=== PATIENT | male | born 1985 | race African-American/Black ===

== ENCOUNTER 2018-09-30 02:30 | Emergency (ER) | payer OTHER ==
[~2018-09-30] VITALS: Ht 177.8 cm; Wt 79.4 kg
[2018-09-30 02:37] VITALS: BP 120/79
--- NOTE | 2018-09-30 02:45 | NUR ---
PT CAME TO EMERGENCY DEPT. BECAUSE HE WOKE UP ON THE GROUND 2 HRS AGO, HE FEELS LIKE HE HAD A SEIZURE. PT HAS A HX OF SEIZURES. PT AXO4. RESPIRATIONS EVEN AND UNLABORED. PT PUT ON THE MONITOR AND PULSE OX. PENDING EVAL FROM ER .
--- NOTE | 2018-09-30 02:52 | NUR ---
BRAYAN ALFRED AT BEDSIDE.
--- NOTE | 2018-09-30 02:57 | NUR ---
LAG SCREWER AT BEDSIDE FOR BLOOD DRAW.
[2018-09-30 03:24] LABS: BASOPHILS # (AUTO) 0.1 /CMM (0.0-0.2); BASOPHILS % (AUTO) 0.8 % (0.0-2.0); EOSINOPHILS % (AUTO) 1.5 % (0.0-6.0); HEMATOCRIT 43 % (39-51); HEMOGLOBIN 14.7 g/dL (13.5-17.5); LYMPHOCYTES # (AUTO) 1.2 /CMM (0.8-4.8); LYMPHOCYTES % (AUTO) 13.9 % (20.0-44.0); MEAN CORPUSCULAR HGB CONC 34 g/dl (31.0-36.0); MEAN CORPUSCULAR VOLUME 91 fL (80-96); MONOCYTES # (AUTO) 0.8 /CMM (0.1-1.30); MONOCYTES % (AUTO) 8.8 % (2.0-12.0); NEUTROPHILS # (AUTO) 6.5 /CMM (1.8-8.9); PLATELET COUNT (AUTO) 479 /CMM (150-450); RED BLOOD CELL COUNT(AUTO) 4.72 MIL/uL (4.5-6.0); WHITE BLOOD COUNT (AUTO) 8.6 K/uL (4.3-11.0)
[2018-09-30 03:36] LABS: CALCIUM, SERUM 9.4 mg/dL (8.5-10.1); POTASSIUM 3.9 mmol/L (3.5-5.1)
[2018-09-30] MEDS ORDERED: LEVETIRACETAM (250 MG) 250 MG TABLET PO ONE ×2 (05:00)
--- NOTE | 2018-09-30 05:30 | NUR ---
Patient discharged to home in stable condition. Written and verbal after care instructions given. Patient verbalizes understanding of instruction.
== END 2018-09-30 05:32 | disposition home or self-care (01) ==
LOC: ER 02:45
DX: R56.9 Unspecified convulsions (principal); E86.0 Dehydration; F25.9 Schizoaffective disorder, unspecified; F32.9 Major depressive disorder, single episode, unspecified
CPT/HCPCS: 36415; 80048; 85025; 99283; A4606

== ENCOUNTER 2018-09-30 17:19 | Emergency (ER) | payer OTHER ==
[~2018-09-30] VITALS: Ht 177.8 cm; Wt 77.1 kg
--- NOTE | 2018-09-30 17:27 | NUR ---
called - no answer
--- NOTE | 2018-09-30 17:41 | NUR ---
BIB SELF, SEEKS TREATMENT AFTER HE THINKS THE CIGARETTE OFFERED TO HIM TODAY MAY HAVE SOME UNKNOWN SUBSTANCE, TO ER BED 7, HOOKED TO MONITOR, AWAITING MD ACKERMAN
--- NOTE | 2018-09-30 17:47 | NUR ---
CLINIC MGR DEGRASSE AT BEDSIDE
[2018-09-30] MEDS ORDERED: QUETIAPINE FUMARATE 25 MG TABLET ONE (17:55)
[2018-09-30] MEDS ORDERED: QUETIAPINE FUMARATE 100 MG TABLET PO ONE (18:00)
--- NOTE | 2018-09-30 19:41 | NUR ---
URINE SAMPLE SENT TO LAB
--- NOTE | 2018-09-30 19:52 | NUR ---
PT VERBALIZES THAT HE'S HEARING VOICES, +SI (DOESN'T HAVE A PLAN), -HI, STIVEN RN WILL EVALUATE PATIENT
[2018-09-30] MEDS ORDERED: LORAZEPAM 1 MG TABLET PO ONE (20:30)
[2018-09-30] MEDS ORDERED: LORAZEPAM 1 MG TABLET ONE (20:31)
--- NOTE | 2018-09-30 21:23 | NUR ---
BRICK SIDING APPLICATOR AT BEDSIDE
--- NOTE | 2018-09-30 21:29 | NUR ---
PROVIDED W SANDWICH AND WATER, TOLERATING PO WELL
--- NOTE | 2018-09-30 21:29 | NUR ---
PER PT, LAST SEIZURE WAS YESTERDAY 09/29/18
[2018-09-30 21:30] LABS: BASOPHILS # (AUTO) 0.1 /CMM (0.0-0.2); BASOPHILS % (AUTO) 0.7 % (0.0-2.0); EOSINOPHILS % (AUTO) 2.9 % (0.0-6.0); HEMATOCRIT 46 % (39-51); HEMOGLOBIN 15.4 g/dL (13.5-17.5); LYMPHOCYTES # (AUTO) 1.8 /CMM (0.8-4.8); LYMPHOCYTES % (AUTO) 23.5 % (20.0-44.0); MEAN CORPUSCULAR HGB CONC 34 g/dl (31.0-36.0); MEAN CORPUSCULAR VOLUME 91 fL (80-96); MONOCYTES # (AUTO) 0.7 /CMM (0.1-1.30); MONOCYTES % (AUTO) 9.5 % (2.0-12.0); NEUTROPHILS # (AUTO) 4.7 /CMM (1.8-8.9); NEUTROPHILS % (AUTO) 63.4 % (43.0-81.0); PLATELET COUNT (AUTO) 464 /CMM (150-450); RED BLOOD CELL COUNT(AUTO) 5.06 MIL/uL (4.5-6.0); WHITE BLOOD COUNT (AUTO) 7.5 K/uL (4.3-11.0)
[2018-09-30 21:43] LABS: CALCIUM, SERUM 9.3 mg/dL (8.5-10.1); CARBON DIOXIDE 27 mmol/L (21-32); CHLORIDE 102 mmol/L (98-107); GLUCOSE 102 mg/dL (74-106); POTASSIUM 3.4 mmol/L (3.5-5.1); SODIUM SERUM 140 mmol/L (136-145); UREA NITROGEN, BLOOD 11 mg/dL (7-18)
[2018-09-30 21:48] LABS: ALANINE AMINOTRANSFERASE 21 U/L (12-78); ALBUMIN 3.5 g/dL (3.4-5.0); ALCOHOL, BLOOD < 3 mg/dL (0-0); ALKALINE PHOSPHATASE 67 U/L (46-116); ASPARTATE AMINOTRANSFERASE 22 U/L (15-37); BILIRUBIN,DIRECT 0.1 mg/dL (0.0-0.2); BILIRUBIN,TOTAL 0.5 mg/dL (0.2-1.0); SALICYLATE 3.1 mg/dL (2.8-20.0); TOTAL PROTEIN, SERUM 8.5 g/dL (6.4-8.2)
[2018-09-30 21:49] LABS: ACETAMINOPHEN 0 ug/ml (10-30)
[2018-09-30] MEDS ORDERED: LEVETIRACETAM (250 MG) 250 MG TABLET PO ONE ×2 (21:54→22:00)
[2018-09-30] MEDS ORDERED: POTASSIUM CHLORIDE 20 MEQ TAB.PRT.SR PO ONE ×2 (22:09→22:30)
[2018-09-30 22:17] LABS: APPEARANCE,URINE Clear (CLEAR); BACTERIA,URINE None seen /HPF (None Seen); BILIRUBIN,URINE Negative (NEGATIVE); BLOOD, URINE Negative Ery/uL (NEGATIVE); COLOR,URINE Yellow (YELLOW); KETONES,URINE 40 (NEGATIVE); LEUKOCYTE ESTERASE ,URINE Negative (NEGATIVE); NITRITE, URINE Negative (NEGATIVE); PH,URINE 5.5 (5.0-8.0); PROTEIN,URINE Negative (NEGATIVE); RBC,URINE NONE SEEN /HPF (0-2); SQUAMOUS EPITHELIAL CELL,UR Few /HPF (None Seen); UGLUCOSE Negative (NEGATIVE); UROBILINOGEN,URINE 0.2 EU/dL (0.2); WBC,URINE 0-2 /HPF (0-3)
--- NOTE | 2018-09-30 22:36 | NUR ---
PT COMFORTABLE IN BED, AWAKE, NAD, HOOKED TO MONITOR, WILL CONTINUE TO MONITOR
[2018-09-30 23:28] VITALS: BP 99/66
--- NOTE | 2018-09-30 23:36 | NUR ---
AWAITING CALLBACK FROM NADIYA, INTAKE NURSE FROM CASEY SANTAMARIA.
--- NOTE | 2018-09-30 23:36 | NUR ---
REPORT GIVEN TO ALICIA COX FOR SERA
--- NOTE | 2018-10-01 00:28 | NUR ---
[facility] [id number] ETA [id number]
--- NOTE | 2018-10-01 00:40 | NUR ---
REPORT GIVEN TO GUIDO JOSUE AT [facility]
--- NOTE | 2018-10-01 01:56 | NUR ---
pt transported to [facility] via private ambulance, left in stable condition.
== END 2018-10-01 01:58 ==
LOC: ER 17:21
DX: F15.90 Other stimulant use, unspecified, uncomplicated (principal); G40.909 Epilepsy, unspecified, not intractable, without status epilepticus; F20.9 Schizophrenia, unspecified; E87.6 Hypokalemia; F17.210 Nicotine dependence, cigarettes, uncomplicated; F32.9 Major depressive disorder, single episode, unspecified; F12.10 Cannabis abuse, uncomplicated
CPT/HCPCS: 36415; 80048; 80076; 80305; 80307; 80329; 81001; 85025; 99285; A4606; G0480; 81000-TC